=== PATIENT | female | born 1975 | race Caucasian/White ===

== ENCOUNTER 2020-02-03 20:36 | Emergency (ER) | payer BC ==
[~2020-02-03] VITALS: Ht 157.5 cm; Wt 106.6 kg
[2020-02-03 20:52] VITALS: Ht 157.5 cm; Wt 106.6 kg
[2020-02-03 23:35] LABS: BASOPHIL % 0.8 % (0-2); PLATELET COUNT 337 x10^3mcL (130-400)
[2020-02-03 23:38] LABS: RED CELL DISTRIBUTION WIDTH 14.7 % (11.5-14.5)
[2020-02-03 23:45] LABS: CALCIUM 9.9 mg/dL (8.5-10.1); CARBON DIOXIDE 31.2 mmol/L (21-32); CHLORIDE SERUM 104 mmol/L (98-107); CREATININE SERUM 0.8 mg/dL (0.6-1.0); GFR1 > 60 mL/min; GLUCOSE SERUM 78 mg/dL (74-106); POTASSIUM SERUM 3.8 mmol/L (3.5-5.1); SODIUM SERUM 141 mmol/L (136-145)
[2020-02-03 23:49] LABS: ALBUMIN 3.5 g/dL (3.4-5.0); ALKALINE PHOSPHATASE 73 U/L (46-116); ALT/SGPT 53 U/L (14-59); AST/SGOT 35 U/L (15-37); BILIRUBIN TOTAL 0.3 mg/dL (0.20-1.00); LIPASE 124 IU/L (73-393); TOTAL PROTEIN, SERUM 7.8 g/dL (6.4-8.2)
[2020-02-04 04:39] VITALS: BP 135/76
== END 2020-02-04 04:40 | disposition left against medical advice (07) ==
LOC: ED 20:36
PROVIDERS: Emergency Medicine
DX: N83.8 Other noninflammatory disorders of ovary, fallopian tube and broad ligament (principal); Z88.0 Allergy status to penicillin
CPT/HCPCS: 87491; 87591; J2270; J2405; J7030; Q0092; Q9967